=== PATIENT | male | born 1960 | race Caucasian/White ===

== ENCOUNTER 2018-04-04 12:53 | Outpatient (CLI) | payer BC ==
--- NOTE | 2018-04-04 14:11 | RAD ---
PA AND LATERAL CHEST: HISTORY: Dyspnea. COMPARISON: None. FINDINGS: Heart size is within normal limits. Postop sternotomy changes are seen. Parenchymal changes are see n in both upper lobes with some retracted changes of both hilar regions. The changes have more of a chronic appearance. Vertebroplasty changes of the mid thoracic vertebral body are noted. IMPRESSION: Chronic appearing upper lobe parenchymal changes. POS: [facility]
== END 2018-04-04 12:54 | disposition home or self-care (01) ==
LOC: RAD 12:53
PROVIDERS: ATTEND Internal Medicine Critical Care Medicine
DX: R06.00 Dyspnea, unspecified (principal)
CPT/HCPCS: 71046

== ENCOUNTER 2018-05-23 12:24 | Outpatient (CLI) | payer BC ==
--- NOTE | 2018-05-23 13:30 | RAD ---
PA AND LATERA CHEST: HISTORY: Dyspnea. COMPARISON: study. FINDINGS: Heart size is within normal limits. There are postop sternotomy changes. The upper lobe paramediast inal parenchymal lung changes are stable as compared to the prior exam. Some refractive changes to t he hilar regions are seen. There is some slight blunting to the left costophrenic angle. These barkley ges appear stable. IMPRESSION: Stable exam. POS: [facility]
--- NOTE | 2018-05-23 13:41 | CT ---
HIGH RESOLUTION CT CHEST PERFORMED WITHOUT CONTRAST ENHANCEMENT: HISTORY: The patient has a history of radiation for Hodgkin's disease. Shortness of breath. Last radiation a nd chemo were in 1988. COMPARISON: Chest x-ray from 04/04/2018. FINDINGS: There are bilateral upper lobe paravertebral parenchymal lung changes, which could be on the basis of post radiation change. These changes were seen on a previous chest x-ray. There is no evidence of any honeycombing. There are no bronchiectatic changes noted. No pleural effusions are seen. Calcified anterior mediastinal lymph nodes are seen. Fairly prominent coronary calcifications are pr esent. It is difficult to assess for pulmonary nodules. There are several areas of possible nodularity, dif ficult to assess on this examination, given the nature of a high resolution CT examination, but there is at least one slightly more suspicious, slightly spiculated, nodular area, measuring 7 mm in size, in the left upper lobe. Other questionable areas of nodularity are seen. I believe these would be better investigated with a traditional CT of the chest, which should be performed with contrast, give n the paramediastinal findings. IMPRESSION: 1. Paramediastinal upper lobe parenchymal change, which may be on the basis of radiation. 2. There are some nodular areas of parenchymal lung, which are not well investigated on this high re solution chest CT, and would be better assessed with a traditional CT chest. 3. Fairly extensive coronary artery calcifications. POS: [facility]
== END 2018-05-23 12:25 | disposition home or self-care (01) ==
LOC: CT 12:24
PROVIDERS: ATTEND Internal Medicine Critical Care Medicine
DX: J84.10 Pulmonary fibrosis, unspecified (principal); R06.00 Dyspnea, unspecified; I25.10 Atherosclerotic heart disease of native coronary artery without angina pectoris; R91.8 Other nonspecific abnormal finding of lung field
CPT/HCPCS: 71046; 71250; 94060; 94727; 94729